=== PATIENT | male | born 1975 | race African-American/Black ===

== ENCOUNTER 2017-02-15 20:24 | Emergency (ER) | payer BC ==
[~2017-02-15] VITALS: Ht 162.6 cm; Wt 68.0 kg
== END 2017-02-15 22:21 | disposition home or self-care (01) ==
LOC: SED 20:24
DX: S01.01XA Laceration without foreign body of scalp, initial encounter (principal); F17.200 Nicotine dependence, unspecified, uncomplicated; W22.8XXA Striking against or struck by other objects, initial encounter
CPT/HCPCS: 12001; 90471; 90715; 99283

== ENCOUNTER 2017-02-25 14:08 | Emergency (ER) | payer BC ==
[~2017-02-25] VITALS: Ht 162.6 cm; Wt 70.3 kg
== END 2017-02-25 16:59 | disposition home or self-care (01) ==
LOC: SED 14:08
DX: S01.01XD Laceration without foreign body of scalp, subsequent encounter (principal); Z48.01 Encounter for change or removal of surgical wound dressing; F17.210 Nicotine dependence, cigarettes, uncomplicated
CPT/HCPCS: 99282